=== PATIENT | male | born 1950 | race Caucasian/White ===

== ENCOUNTER → 2016-06-16 | Outpatient (CLI) | payer OTHER, MEDICARE | END | disposition home or self-care (01) | LOC: CDC 14:54 | DX: R94.31 Abnormal electrocardiogram [ECG] [EKG] (principal); S43.81XD Sprain of other specified parts of right shoulder girdle, subsequent encounter; M75.121 Complete rotator cuff tear or rupture of right shoulder, not specified as traumatic | CPT/HCPCS: 93000 ==